=== PATIENT | male | born 1990 | race Hispanic/Latino ===

== ENCOUNTER 2020-03-11 04:28 | Inpatient (IN) | payer SELFPAY ==
[2020-03-11 04:59] LABS: Absolute Lymphocytes (CBC) 2.3 K/uL (0.7-4.9); Basophils % 0.5 % (0-1.3); Hematocrit 46.2 % (39.6-49.0); Lymphocytes % 17.4 % (15.3-44.8); MPV 10.1 fL (7.6-11.3); RBC Red Blood Cell Count 5.14 M/uL (4.33-5.43)
[2020-03-11] MEDS ORDERED: NA CHLORIDE 0.9% 1,000 ML ONE (04:59)
[2020-03-11] MEDS ORDERED: ONDANSETRON 4 MG/2 ML VIAL ONE ×2 (04:59→13:07)
[2020-03-11] MEDS ORDERED: MORPHINE 4 MG/ML SYR ONE ×3 (04:59→07:53)
[2020-03-11 05:13] LABS: ALT/SGPT 50 U/L (12-78); AST/SGOT 26 U/L (15-37); Albumin 4.3 g/dL (3.4-5.0); Alkaline Phosphatase 60 U/L (45-117); BUN Blood Urea Nitrogen 15 mg/dL (7-18); Bicarbonate 23 mmol/L (21-32); Bilirubin Direct < 0.1 mg/dL (0-0.2); Bilirubin Total 0.4 mg/dL (0.2-1.0); Glucose Level 134 mg/dL (74-106); Lipase 139 U/L (73-393); Potassium 3.5 mmol/L (3.5-5.1); Protein, Total 8.8 g/dL (6.4-8.2); Sodium Level 142 mmol/L (136-145)
[2020-03-11] MEDS ORDERED: FENTANYL CITR 100 MCG/2 ML ONE ×3 (06:54→14:15)
--- NOTE | 2020-03-11 08:44 | RAD REPORT ---
EXAM DESCRIPTION: US - Abdomen Exam Limited - 03/11/2020 7:11 am CLINICAL HISTORY: Abdominal pain. COMPARISON: None. FINDINGS: Multiple gallstones. 1 centimeter echogenic structure is adherent to the gallbladder wall. The gallbladder wall is not thickened. Fatty liver The biliary tree is normal caliber. IMPRESSION: Cholelithiasis without evidence of cholecystitis 1 centimeter echogenic structure is adherent to the gallbladder wall may represent a polyp or gallsto roseanne. Follow-up gallbladder ultrasound in 3 months recommended for re-evaluation
--- NOTE | 2020-03-11 09:20 | ER ---
Nurse's Notes [facility] Name: José Moreno Age: 30 yrs Sex: Male : 1990 Arrival Date: 03/11/2020 Time: 04:29 Bed 16 Private MD: Diagnosis: Cholelithiasis;Intractable pain Presentation: 03/11 04:39 Chief complaint: Patient states: RUQ abdominal pain that began at 0030 tonight; patient lp1 noted to be restless, unable to sit in triage related to pain/discomfort; States making himself vomit to feel better, no relief. Coronavirus screen: Proceed with normal triage. Ebola Screen: No symptoms or risks identified at this time. Initial Sepsis Screen: Does the patient meet any 2 criteria? No. Patient's initial sepsis screen is negative. Does the patient have a suspected source of infection? No. Patient's initial sepsis screen is negative. Risk Assessment: Do you want to hurt yourself or someone else? Patient reports no desire to harm self or others. Onset of symptoms was March 11, 2020 at 00:30. 04:39 Method Of Arrival: Ambulatory lp1 04:39 Acuity: ERICK 3 lp1 Historical: - Allergies: 04:44 No Known Allergies; lp1 - Home Meds: 04:44 None [Active]; lp1 - PMHx: 04:44 None; lp1 - PSHx: 04:44 None; lp1 - Immunization history:: Adult Immunizations up to date. - Social history:: Smoking status: Patient denies any tobacco usage or history of. Screenin:42 Abuse screen: Denies threats or abuse. Denies injuries from another. Nutritional rr5 screening: No deficits noted. Tuberculosis screening: No symptoms or risk factors identified. Fall Risk IV access (20 points). Total Barnett Fall Scale indicates No Risk (0-24 pts). Assessment: 05:01 General: Appears in no apparent distress. uncomfortable, ill, Behavior is calm, rr5 cooperative, appropriate for age. Pain: Complains of pain in right upper quadrant Pain does not radiate. Pain currently is 10 out of 10 on a pain scale. Quality of pain is described as aching, Pain began gradually, Is intermittent. Neuro: Level of Consciousness is awake, alert, obeys commands, Oriented to person, place, time, situation, Appropriate for age. Cardiovascular: Capillary refill < 3 seconds Patient's skin is warm and dry. Respiratory: Airway is patent Respiratory effort is even, unlabored, Respiratory pattern is regular, symmetrical. GI: Abdomen is round non-distended, Bowel sounds present X 4 quads. Abd is soft and non tender X 4 quads. Reports upper abdominal pain, nausea, vomiting. : No signs and/or symptoms were reported regarding the genitourinary system. EENT: No signs and/or symptoms were reported regarding the EENT system. Derm: Skin is intact, is healthy with good turgor, Skin temperature is warm. Musculoskeletal: Circulation, motion, and sensation intact. Capillary refill < 3 seconds. 05:40 Reassessment: Patient appears in no apparent distress at this time. ED provider aware rr5 with order made and carried out. Patient states symptoms have not improved. 06:50 Reassessment: Patient appears in no apparent distress at this time. complaints of rr5 abdominal pain, ED provider aware with order made and carried out. ultrasound at bedside. Patient states symptoms have not improved. 08:44 Reassessment: Patient appears in no apparent distress at this time. Patient and/or jl7 family updated on plan of care and expected duration. Pain level reassessed. Patient is alert, oriented x 3, equal unlabored respirations, skin warm/dry/pink. Pain rated 4/10 at this time. Awaiting surgeon consult at this time. Will continue to monitor Patient states symptoms have improved. 10:00 Reassessment: Patient appears in no apparent distress at this time. No changes from jl7 previously documented assessment. Patient and/or family updated on plan of care and expected duration. Pain level reassessed. Patient is alert, oriented x 3, equal unlabored respirations, skin warm/dry/pink. 11:00 Reassessment: Patient appears in no apparent distress at this time. No changes from jl7 previously documented assessment. Patient and/or family updated on plan of care and expected duration. Pain level reassessed. Patient is alert, oriented x 3, equal unlabored respirations, skin warm/dry/pink. Vital Signs: 04:39 BP 153 / 103; Pulse 59; Resp 18; Temp 98.6(O); Pulse Ox 100% on R/A; Weight 81.65 kg lp1 (R); Height 5 ft. 5 in. (165.10 cm); Pain 10/10; 05:40 BP 145 / 93; Pulse 60; Resp 17; Pulse Ox 99% on R/A; Pain 10/10; rr5 06:50 BP 139 / 75; Pulse 59; Resp 16; Pulse Ox 99% ; Pain 8/10; rr5 07:53 BP 125 / 86; Pulse 56; Resp 18; Pulse Ox 98% on R/A; Pain 5/10; ph 10:00 BP 132 / 92; Pulse 56; Resp 17; Pulse Ox 98% ; Pain 4/10; jl7 04:39 Body Mass Index 29.95 (81.65 kg, 165.10 cm) lp1 ED Course: 04:29 Patient arrived in ED. ds1 04:33 Trent Jaramillo MD is Attending Physician. tw4 04:41 Stu Rankin RN is Primary Nurse. rr5 04:43 Patient has correct armband on for positive identification. Bed in low position. Call rr5 light in reach. Pulse ox on. NIBP on. 04:44 Triage completed. lp1 04:44 Arm band placed on. lp1 04:45 Inserted saline lock: 20 gauge in left antecubital area, using aseptic technique. Blood ds4 collected. 04:47 Basic Metabolic Panel Sent. ds4 04:47 Lipase Sent. ds4 04:47 Hepatic Function Sent. ds4 04:47 CBC with Diff Sent. ds4 04:47 Creatinine for Radiology Sent. ds4 07:07 US Abdomen Limited In Process Unspecified. EDMS 07:26 Attending Physician role handed off by Trent Jaramillo MD rn 07:26 Jesus Garcia MD is Attending Physician. rn 09:19 Dandre Mcfarland MD is Hospitalizing Provider. rn 11:42 No provider procedures requiring assistance completed. Patient admitted, IV remains in jl7 place. intact, No redness/swelling at site. Administered Medications: 04:57 Drug: Zofran (Ondansetron) 4 mg Route: IVP; Site: left antecubital; rr5 05:50 Follow up: Response: No adverse reaction rr5 04:59 Drug: morphine 4 mg {Note: rass 0.} Route: IVP; Site: left antecubital; rr5 05:49 Follow up: Response: No adverse reaction; Pain is unchanged, physician notified; RASS: rr5 Alert and Calm (0) 04:59 Drug: NS 0.9% 1000 ml Route: IV; Rate: 1 bolus; Site: left antecubital; rr5 08:47 Follow up: Response: No adverse reaction; IV Intake: 1000ml jl7 05:49 Drug: morphine 4 mg {Note: rass 0.} Route: IVP; Site: left antecubital; rr5 06:30 Follow up: Response: No adverse reaction; Anxiety decreased; RASS: Alert and Calm (0) rr5 06:55 Drug: fentaNYL (PF) 25 mcg {Note: rass 0.} Route: IVP; Site: left antecubital; rr5 08:48 Follow up: Response: No adverse reaction jl7 07:51 Drug: morphine 4 mg Route: IVP; Site: left antecubital; ph 08:47 Follow up: Response: No adverse reaction; Pain is decreased jl7 Intake: 08:47 IV: 1000ml; Total: 1000ml. jl7 Outcome: 09:19 Decision to Hospitalize by Provider. rn 11:42 Admitted to OR accompanied by nurse, via stretcher, with chart. jl7 11:42 Condition: stable 11:42 Discharge instructions given to patient, Instructed on the need for admit, Demonstrated understanding of instructions. 11:44 Patient left the ED. jl7 Signatures: Dispatcher [employer] Shahida Petty ds1 Jesus Garcia MD MD rn Pena, Laura RN RN lp1 Tyrone Paz ds4 Meliza Barr RN RN Tony Sheth RN RN jl7 Trent Jaramillo MD MD tw4 Stu Raknin RN RN rr5
--- NOTE | 2020-03-11 09:21 | EDPHYS ---
Physician Documentation [facility] Name: José Moreno Age: 30 yrs Sex: Male : 1990 Arrival Date: 03/11/2020 Time: 04:29 Bed 16 Private MD: ED Physician Jesus Garcia HPI: 03/11 04:55 This 30 yrs old Male presents to ER via Ambulatory with complaints of tw4 Abdominal Pain. 04:55 The patient presents with abdominal pain. Onset: The symptoms/episode began/occurred tw4 today, 5 hour(s) ago. The symptoms do not radiate. Associated signs and symptoms: none. The symptoms are described as dull. Modifying factors: The symptoms are alleviated by nothing, the symptoms are aggravated by nothing. Severity of pain: At its worst the pain was severe in the emergency department the pain is unchanged. The patient has experienced a previous episode, but today's symptoms are worse. Historical: - Allergies: 04:44 No Known Allergies; lp1 - Home Meds: 04:44 None [Active]; lp1 - PMHx: 04:44 None; lp1 - PSHx: 04:44 None; lp1 - Immunization history:: Adult Immunizations up to date. - Social history:: Smoking status: Patient denies any tobacco usage or history of. ROS: 04:55 Constitutional: Negative for fever, chills, and weight loss, Eyes: Negative for injury, tw4 pain, redness, and discharge, Cardiovascular: Negative for chest pain, palpitations, and edema, Respiratory: Negative for shortness of breath, cough, wheezing, and pleuritic chest pain, Back: Negative for injury and pain, MS/Extremity: Negative for injury and deformity, Skin: Negative for injury, rash, and discoloration, Neuro: Negative for headache, weakness, numbness, tingling, and seizure. 04:55 Abdomen/GI: Positive for abdominal pain, Negative for nausea and vomiting, nausea, vomiting, and diarrhea, constipation, anorexia, black/tarry stool, rectal pain. Exam: 04:55 Constitutional: This is a well developed, well nourished patient who is awake, alert, tw4 and in no acute distress. 04:55 Head/Face: Normocephalic, atraumatic. Chest/axilla: Normal chest wall appearance and motion. Nontender with no deformity. No lesions are appreciated. Cardiovascular: Regular rate and rhythm with a normal S1 and S2. No gallops, murmurs, or rubs. Normal PMI, no JVD. No pulse deficits. Respiratory: Lungs have equal breath sounds bilaterally, clear to auscultation and percussion. No rales, rhonchi or wheezes noted. No increased work of breathing, no retractions or nasal flaring. Skin: Warm, dry with normal turgor. Normal color with no rashes, no lesions, and no evidence of cellulitis. MS/ Extremity: Pulses equal, no cyanosis. Neurovascular intact. Full, normal range of motion. Neuro: Awake and alert, GCS 15, oriented to person, place, time, and situation. Cranial nerves II-XII grossly intact. Motor strength 5/5 in all extremities. Sensory grossly intact. Cerebellar exam normal. Normal gait. 04:55 Constitutional: The patient appears in obvious distress, mildly distressed, in obvious pain. 04:55 Abdomen/GI: Inspection: abdomen appears normal, Bowel sounds: diminished, Palpation: moderate abdominal tenderness, in the right upper quadrant. Vital Signs: 04:39 BP 153 / 103; Pulse 59; Resp 18; Temp 98.6(O); Pulse Ox 100% on R/A; Weight 81.65 kg lp1 (R); Height 5 ft. 5 in. (165.10 cm); Pain 10/10; 05:40 BP 145 / 93; Pulse 60; Resp 17; Pulse Ox 99% on R/A; Pain 10/10; rr5 06:50 BP 139 / 75; Pulse 59; Resp 16; Pulse Ox 99% ; Pain 8/10; rr5 07:53 BP 125 / 86; Pulse 56; Resp 18; Pulse Ox 98% on R/A; Pain 5/10; ph 10:00 BP 132 / 92; Pulse 56; Resp 17; Pulse Ox 98% ; Pain 4/10; jl7 04:39 Body Mass Index 29.95 (81.65 kg, 165.10 cm) lp1 MDM: 04:33 Patient medically screened. tw4 07:34 ED course: Pt still having abd pain, morphine repeated, Bola Jaramillo called Dr. Bartolo burks who doesn't believe he is project control officer, states will call back when he finds out who is project control officer. 09:17 Differential diagnosis: cholecystitis, Cholelithiasis, gastritis, gastroesophageal rn reflux disease, Hepatitis, non-specific abd pain, pancreatitis, Peptic Ulcer Disease. Data reviewed: vital signs, nurses notes, lab test result(s), radiologic studies, ultrasound, and as a result, I will admit patient. Counseling: I had a detailed discussion with the patient and/or guardian regarding: the historical points, exam findings, and any diagnostic results supporting the discharge/admit diagnosis, lab results, radiology results, the need for further work-up and treatment in the hospital. Response to treatment: the patient's symptoms have mildly improved after treatment, and as a result, I will admit patient. Admission orders: after a detailed discussion of the patient's condition and case, the admit orders are written by me. ED course: Still waiting project control officer back to find out which surgeon is taking patient. . 03/11 04:33 Order name: Basic Metabolic Panel; Complete Time: 06:53 03/11 06:53 Interpretation: Normal except: CL 108; GFR 76; GLUC 134. 03/11 04:33 Order name: CBC with Diff; Complete Time: 06:53 03/11 06:53 Interpretation: Normal except: WBC 13.1; ARINA% 75.8; NEUT A 9.9. 03/11 04:33 Order name: Creatinine for Radiology; Complete Time: 06:53 03/11 06:53 Interpretation: Within normal limits: CRE 1.13. 03/11 04:33 Order name: Hepatic Function; Complete Time: 06:53 03/11 06:53 Interpretation: Normal except: TP 8.8; GLOB 4.5; A/G 1.0. 03/11 04:33 Order name: Lipase; Complete Time: 06:53 03/11 06:53 Interpretation: Within normal limits: LIP 139. 03/11 05:30 Order name: US Abdomen Limited; Complete Time: 08:48 03/11 04:33 Order name: IV Saline Lock; Complete Time: 04:47 03/11 04:33 Order name: Labs collected and sent; Complete Time: 04:47 tw4 Administered Medications: 04:57 Drug: Zofran (Ondansetron) 4 mg Route: IVP; Site: left antecubital; rr5 05:50 Follow up: Response: No adverse reaction rr5 04:59 Drug: morphine 4 mg {Note: rass 0.} Route: IVP; Site: left antecubital; rr5 05:49 Follow up: Response: No adverse reaction; Pain is unchanged, physician notified; RASS: rr5 Alert and Calm (0) 04:59 Drug: NS 0.9% 1000 ml Route: IV; Rate: 1 bolus; Site: left antecubital; rr5 08:47 Follow up: Response: No adverse reaction; IV Intake: 1000ml jl7 05:49 Drug: morphine 4 mg {Note: rass 0.} Route: IVP; Site: left antecubital; rr5 06:30 Follow up: Response: No adverse reaction; Anxiety decreased; RASS: Alert and Calm (0) rr5 06:55 Drug: fentaNYL (PF) 25 mcg {Note: rass 0.} Route: IVP; Site: left antecubital; rr5 08:48 Follow up: Response: No adverse reaction jl7 07:51 Drug: morphine 4 mg Route: IVP; Site: left antecubital; ph 08:47 Follow up: Response: No adverse reaction; Pain is decreased jl7 Disposition: 03/11/20 09:19 Hospitalization ordered by Dandre Mcfarland for Inpatient Admission. Preliminary diagnosis are Cholelithiasis, Intractable pain. - Bed requested for Telemetry/MedSurg (Inpatient). - Status is Inpatient Admission. jl7 - Condition is Stable. - Problem is new. - Symptoms have improved. Signatures: Dispatcher [employer] EDMS Jesus Garcia MD MD rn Pena, Laura, RN RN lp1 Meliza Barr RN RN Tony Hernandez RN RN jl7 Trent Jaramillo MD MD tw4 Stu Rankin, RN RN rr5 Corrections: (The following items were deleted from the chart) 11:44 09:19 Hospitalization Ordered by Dandre Mcfarland MD for Inpatient Admission. Preliminary jl7 diagnosis is Cholelithiasis; Intractable pain. Bed requested for Telemetry/MedSurg (Inpatient). Status is Inpatient Admission. Condition is Stable. Problem is new. Symptoms have improved. rn
[2020-03-11] MEDS ORDERED: Ringers Lactate 1,000 ML IV ONE ×2 (11:46→14:19)
[2020-03-11] MEDS ORDERED: CEFOXITIN/SWI 1gm 1 GM/10 ML SYR ONE (12:35)
[2020-03-11] MEDS ORDERED: propofoL 200 MG/20 ML VIAL IV ONE (13:06)
[2020-03-11] MEDS ORDERED: dexAMETHasone 10 MG/ML VIAL ONE (13:06)
[2020-03-11] MEDS ORDERED: LIDOCAINE 2% MPF 5 ML VIAL ONE (13:06)
[2020-03-11] MEDS ORDERED: ROCURONIUM 50 MG/5 ML VIAL IV ONE (13:06)
[2020-03-11] MEDS ORDERED: KETOROLAC 30 MG/ML INJ ONE (13:07)
[2020-03-11] MEDS ORDERED: MIDAZOLAM HCL 2 MG/2 ML INJ ONE (13:07)
--- NOTE | 2020-03-11 13:16 | P.HP ---
Date of Service: 03/11/20 PC: This 30-year-old male presents emergency room with severe right upper quadrant abdominal pain for diagnosis and treatment. HPC: Patient is had episodes of pain off and on for the last couple of months. So this is his 4th attack. However last night. Pain was extremely severe occur around midnight. It was unrelenting and seemed to radiate around to his back. PMH: Negative PSHx: No prior surgery SOC: No known allergies SYS REVIEW: No cough, wheeze, shortness of breath. No chest pain or palpitations. Denies any urinary complaints. Healthy male, recently discharged from the [employer] O/E awake alert comfortable at the moment vital signs are stable HEENT: Not jaundiced Chest: Chest movement equal bilaterally ABD: Tender in the right upper quadrant LOCO: Intact DATA: Ultrasound shows stones clinically the patient has cholecystitis IMPRESSION: Cholecystitis with cholelithiasis PLAN: I will take him the operating room for laparoscopic possible open cholecystectomy with intraoperative cholangiogram. The risks of this procedure have been discussed. The possibility of bleeding, infection, injury to bile ducts blood vessels intestines has been in described. The possible need for an open and/or further surgeries and procedures was discussed. He understands and wants us to proceed.
[2020-03-11] MEDS ORDERED: NEOSTIGMINE 1 MG/ML -5 ML ONE (14:22)
[2020-03-11] MEDS ORDERED: GLYCOPYRROLATE 0.2 MG/ML SYR ONE ×2 (14:22→14:51)
[2020-03-11] MEDS ORDERED: ONDANSETRON 4 MG/2 ML VIAL IV PRN (14:48)
[2020-03-11] MEDS ORDERED: MORPHINE 4 MG/ML SYR IV PRN ×2 (14:48→15:03)
[2020-03-11] MEDS ORDERED: D5 0.45 NS 1,000 ML IV SCH (14:48)
--- NOTE | 2020-03-11 14:49 | P.OP ---
Preoperative diagnosis: Acute cholecystitis with cholelithiasis Postoperative diagnosis: The same with patchy gangrene of the gallbladder Primary procedure: Laparoscopic cholecystectomy Secondary procedure: Cholangiogram Anesthesia: General Estimated blood loss: Less than 10 cc Specimen: 1 gallbladder and contents Operative Technique: The patient brought the operating room placed supine on the table or after the induction of adequate general endotracheal anesthesia, there then was prepped with a DuraPrep solution, and he was draped in usual aseptic manner. Attention was turned towards the umbilicus. A subumbilical incision was made. This was brought down through the skin and subcutaneous tissue. The Visiport was now used to enter the peritoneal cavity and created pneumoperitoneum to approximately 12 mm of mercury. With the patient in reverse Trendelenburg and rolled to the left of a 5 mm trocar was placed in the upper midline, and 2 other 5s on the right lateral side of the abdomen attention was now turned towards the gallbladder itself. It was noted to have areas of patchy gangrene visible through this distended inflamed gallbladder. The contents of the gallbladder were aspirated. A grasper was now placed on the fundus of the gallbladder. Another was placed down by Yarely's pouch. It was notable the amount of edema there was around the Yarely's pouch area. Using gentle dissection we were able to dissect pattern expose the cystic duct and artery. Having obtained the critical view, a clip was placed between the gallbladder and the cystic duct. An opening was made into the cystic duct through which we obtained a normal intraoperative cholangiogram. Attention was turned towards the artery. It was clipped and cauterized. The catheter was then removed from the cystic duct. Clips were placed distally and the catheter was removed. The cystic duct was then transected. The gallbladder was then dissected free from the liver bed, placed into an Endo-Catch, and brought out through the umbilical trocar site. At this point the abdomen is inspected to ensure adequate hemostasis. Irrigating fluid was aspirated from the right lateral sidewall of the peritoneal cavity. Under direct vision the Endo Close was now used to approximate the umbilical facile defect using an absorbable suture. The pneumoperitoneum was now collapsed, the trocars removed, and osmin applied to the skin At the end of the procedure he was stable when sent to the recovery room. Needle sponge instrument count were correct. No drains were placed.. Transferred to: Recovery Room Condition: Good
[2020-03-11] MEDS ORDERED: HYDROCODONE/APAP 7.5/325 MG TAB PO PRN (15:03)
--- NOTE | 2020-03-11 15:18 | RAD REPORT ---
EXAM DESCRIPTION: RAD - Cholangiogram Oper-Xray Or - 03/11/2020 2:40 pm FINDINGS: A single portable image was submitted from a fluoroscopic assisted intraoperative cholangi ogram. Assessment is limited when only a single images available. No suspicious or unexpected finding . Fluoro time was 0.3 minutes.
[2020-03-11 16:21] VITALS: BMI 29.9
[2020-03-11] MEDS: CEFOXITIN/SWI 1gm 1 GM/10 ML SYR IVP SCH (17:58)
[2020-03-11] MEDS ORDERED: CEFOXITIN 1 GM in NA CHLORIDE 0.9% 100 ML IVPB SCH (18:00)
[2020-03-12] MEDS: CEFOXITIN/SWI 1gm 1 GM/10 ML SYR IVP SCH ×3 (01:04→11:04)
[2020-03-12 08:00] VITALS: O2SAT 98
[2020-03-12 12:26] VITALS: BP 129/72; TEMP 97.9
== END 2020-03-12 12:28 | disposition home or self-care (01) | DRG 419 ==
LOC: ER 04:28 → ERHOLD 09:43 → 4TH 13:40
PROVIDERS: ADMIT Surgery; ATTEND Surgery
PROC: BF121ZZ Fluoroscopy of Gallbladder using Low Osmolar Contrast (ICD-10-PCS; 2020-03-11)
PROC: 0FT44ZZ Resection of Gallbladder, Percutaneous Endoscopic Approach (ICD-10-PCS; principal; 2020-03-11 13:45)
DX: K80.00 Calculus of gallbladder with acute cholecystitis without obstruction (principal); K82.A1 Gangrene of gallbladder in cholecystitis
CPT/HCPCS: 36415; 74300; 76705; 80048; 80076; 83690; 85025; 88304; 96374; 96375; 99285; J1100; J2250; J2405; J2704; J2710; J3010; J7030; J7120